=== PATIENT | female | born 1965 | race Caucasian/White ===

== ENCOUNTER 2017-03-01 07:18 | Inpatient (IN) | payer OTHER, BC ==
[2017-03-01] VITALS (14 sets, daily range): BP systolic 104–169; BP diastolic 59–114; PULSE 97–142; RESP 12–18; TEMP 96.6–98.2; O2SAT 97–100
[~2017-03-01] VITALS: Ht 167.6 cm; Wt 72.4 kg
[2017-03-01] MEDS ORDERED: IOHEXOL 350 MG/ML 10 ML VIAL (for RAD DIAG) IVCONTRAST ONE (07:19)
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
[2017-03-01 07:44] LABS: AUTOMATED NEUTROPHIL # 8.1 TH/MM3 (1.8-7.7); BASOPHIL # 0.1 TH/MM3 (0-0.2); BASOPHIL % 0.5 % (0.0-2.0); EOSINOPHIL # 0.3 TH/MM3 (0-0.4); EOSINOPHIL % 2.5 % (0.0-4.0); HEMATOCRIT 36.3 % (35.0-46.0); HEMOGLOBIN 12.9 GM/DL (11.6-15.3); LYMPH % 21.2 % (9.0-44.0); LYMPHOCYTE # 2.5 TH/MM3 (1.0-4.8); MEAN CELL VOLUME 96.3 FL (80.0-100.0); MEAN CORPUSCULAR HEMOGLOBIN 34.4 PG (27.0-34.0); MEAN CORPUSCULAR HGB CONC 35.7 % (32.0-36.0); MEAN PLATELET VOLUME 7.9 FL (7.0-11.0); MONO % 8.5 % (0.0-8.0); NEUT % 67.3 % (16.0-70.0); PLATELET COUNT 258 TH/MM3 (150-450); RED BLOOD COUNT 3.77 MIL/MM3 (4.00-5.30); RED CELL DISTRIBUTION WIDTH 13.8 % (11.6-17.2)
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
[2017-03-01 07:55] LABS: PROTHROMBIN TIME - PATIENT 10.5 SEC (9.8-11.6)
[2017-03-01] MEDS ORDERED: ETOMIDATE 40 MG/20 ML VIAL ONE (08:01)
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
[2017-03-01] MEDS ORDERED: ATROPINE SULFATE 1 MG/10 ML SYRINGE ONE (08:22)
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
[2017-03-01] MEDS ORDERED: PROPOFOL 1000 MG/100 ML INJ 100 ML IV PRN (08:30)
[2017-03-01 08:43] LABS: BILIRUBIN, URINE NEG (NEG); BLOOD, URINE NEG (NEG); GLUCOSE,URINE NEG (NEG); KETONE, URINE TRACE mg/dL (NEG); MUCUS URINE FEW /lpf (OCC); NITRITE,URINE NEG (NEG); PH, URINE 5.5 (5.0-8.5); SQUAMOUS EPITHELIAL CELL URINE <1 /hpf (0-5); URINE COLOR YELLOW (YELLW/STRAW); URINE LEUKOCYTE ESTERASE NEG (NEG)
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
[2017-03-01] MEDS ORDERED: SODIUM CHLORIDE 0.9% FLUSH 10 ML FLUSH IV FLUSH PRN (09:15)
[2017-03-01] MEDS ORDERED: SODIUM PHOSPHATE INJ 30 MMOL in SODIUM CHLOR 0.9% 250 ML INJ 240 ML IV PRN (09:15)
[2017-03-01] MEDS ORDERED: ENALAPRILAT 1.25 MG/ML VIAL IV PUSH PRN (09:15)
[2017-03-01] MEDS ORDERED: POTASSIUM PHOSPHATE MONOBASIC 500 MG TAB PO PRN (09:15)
[2017-03-01] MEDS ORDERED: MAGNESIUM SULFATE INJ 2 GM in SODIUM CHLORIDE 0.9% INJ 96 ML IV PRN (09:15)
[2017-03-01] MEDS ORDERED: MAGNESIUM OXIDE 400 MG TAB PO PRN (09:15)
[2017-03-01] MEDS ORDERED: MISCELLANEOUS NURSING INFORMATION XX SCH (09:15)
[2017-03-01] MEDS ORDERED: POTASSIUM PHOSPHATE MONOBASIC 500 MG TAB PO/TUBE PRN (09:15)
[2017-03-01] MEDS ORDERED: POTASSIUM CHLOR 40 MEQ PREMIX 100 ML IV PRN ×2 (09:15)
[2017-03-01] MEDS ORDERED: POTASSIUM CHLORIDE 25 MEQ EFFERVESCENT TAB PO PRN (09:15)
[2017-03-01] MEDS ORDERED: MAGNESIUM HYDROXIDE SUSP 30 ML CUP PO PRN (09:15)
[2017-03-01] MEDS ORDERED: POTASSIUM CHLOR 20 MEQ PREMIX 100 ML IV PRN ×2 (09:15)
[2017-03-01] MEDS ORDERED: MAGNESIUM SULFATE INJ 4 GM in SODIUM CHLORIDE 0.9% INJ 92 ML IV PRN (09:15)
[2017-03-01] MEDS ORDERED: CHLORHEXIDINE GLUCONATE 2 % 1 PACK (2 CLOTHS) TOP PRN (09:15)
[2017-03-01] MEDS ORDERED: ACETAMINOPHEN 325 MG TAB PO PRN (09:15)
[2017-03-01] MEDS ORDERED: POTASSIUM PHOSPHATE INJ 30 MMOL in SODIUM CHLOR 0.9% 250 ML INJ 250 ML IV PRN (09:15)
[2017-03-01] MEDS ORDERED: ONDANSETRON HCL 4 MG/2 ML VIAL IV PUSH PRN (09:15)
[2017-03-01] MEDS ORDERED: SODIUM CHLOR 0.9% 1000 ML INJ 1,000 ML IV ONE (09:30)
[2017-03-01] MEDS ORDERED: MIDAZOLAM 100 MG/100 ML INJ 100 ML IV PRN (09:30)
[2017-03-01] MEDS ORDERED: MIDAZOLAM 100 MG/100 ML INJ 100 ML ONE (09:38)
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
[2017-03-01] MEDS ORDERED: SODIUM CHLOR 0.9% 1000 ML INJ 1,000 ML IV SCH (10:00)
[2017-03-01] MEDS ORDERED: PANTOPRAZOLE SODIUM 40 MG VIAL IVP SCH (10:00)
[2017-03-01] MEDS ORDERED: CHLORHEXIDINE 0.12% (ORAL KIT) 15 ML CUP MT SCH ×2 (20:00)
[2017-03-01] MEDS: DOCUSATE SODIUM 100 MG CAP PO SCH (21:00)
[2017-03-01] MEDS ORDERED: HALOPERIDOL LACTATE 5 MG/ML AMP IM PRN (21:15)
[2017-03-02 04:00] VITALS: BP 94/51; PULSE 92; RESP 16; TEMP 98.7; O2SAT 97
[2017-03-02] MEDS ORDERED: CHLORHEXIDINE GLUCONATE 2 % 1 PACK (2 CLOTHS) TOP SCH (04:00)
[2017-03-02 06:17] LABS: BASOPHIL % 0.2 % (0.0-2.0); EOSINOPHIL # 0.3 TH/MM3 (0-0.4); EOSINOPHIL % 3.2 % (0.0-4.0); HEMATOCRIT 34.2 % (35.0-46.0); HEMOGLOBIN 11.7 GM/DL (11.6-15.3); LYMPH % 21.7 % (9.0-44.0); LYMPHOCYTE # 2.3 TH/MM3 (1.0-4.8); MEAN CELL VOLUME 96.4 FL (80.0-100.0); MEAN CORPUSCULAR HGB CONC 34.2 % (32.0-36.0); MONOCYTE # 0.8 TH/MM3 (0-0.9); NEUT % 66.9 % (16.0-70.0); PLATELET COUNT 207 TH/MM3 (150-450); RED BLOOD COUNT 3.55 MIL/MM3 (4.00-5.30); RED CELL DISTRIBUTION WIDTH 13.8 % (11.6-17.2); WHITE BLOOD COUNT 10.5 TH/MM3 (4.0-11.0)
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
[2017-03-02 06:42] LABS: ALBUMIN 3.4 GM/DL (3.4-5.0); ALT (GPT) 18 U/L (10-53); AST (GOT) 24 U/L (15-37); BICARBONATE 25.9 MEQ/L (21.0-32.0); BLOOD UREA NITROGEN 8 MG/DL (7-18); CALCIUM 8.8 MG/DL (8.5-10.1); CHLORIDE 109 MEQ/L (98-107); CREATININE 0.56 MG/DL (0.50-1.00); GLOMERULAR FILTRATION RATE 93 ML/MIN (>89); GLUCOSE,RANDOM 97 MG/DL (74-106); SODIUM (NA) 142 MEQ/L (136-145)
[2017-03-02 06:45] LABS: ALKALINE PHOSPHATASE 92 U/L (45-117); TOTAL BILIRUBIN ADULT 0.5 MG/DL (0.2-1.0); TOTAL PROTEIN 6.5 GM/DL (6.4-8.2)
[2017-03-02 07:40] VITALS: BP 102/60; PULSE 96; RESP 16; TEMP 98.2; O2SAT 98
[2017-03-02] MEDS: DOCUSATE SODIUM 100 MG CAP PO SCH (08:48)
[2017-03-02 11:56] VITALS: BP 104/55; PULSE 98; RESP 16; TEMP 97.4; O2SAT 98
[2017-03-02] MEDS ORDERED: QUEtiapine FUMARATE 25 MG TAB PO SCH (12:00)
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
== END 2017-03-02 15:12 | DRG 948 ==
LOC: NEPI 07:18 → NEDA 08:58 → EDBD 08:58 → N06A 12:50
PROVIDERS: ADMIT Surgery; ATTEND Surgery
PROC: 0BH17EZ Insertion of Endotracheal Airway into Trachea, Via Natural or Artificial Opening (ICD-10-PCS; principal; 2017-03-01)
PROC: 5A1935Z Respiratory Ventilation, Less than 24 Consecutive Hours (ICD-10-PCS; 2017-03-01)
DX: R41.82 Altered mental status, unspecified (principal); E03.9 Hypothyroidism, unspecified; F29 Unspecified psychosis not due to a substance or known physiological condition
CPT/HCPCS: 36600; 70450; 71045; 71260; 72125; 72170; 74177; 80053; 80307; 81001; 82435; 82565; 82805; 82947; 84100; 84132; 84295; 84520; 85025; 85610; 85730; 86850; 86900; 86901; 94002; J0461; J2250; Q9967

== ENCOUNTER 2017-03-02 14:46 | Inpatient (IN) | payer BC, OTHER ==
[~2017-03-02] VITALS: Ht 172.7 cm; Wt 69.2 kg
[2017-03-02 15:21] VITALS: BP 117/68; PULSE 84; RESP 18; TEMP 98.2; O2SAT 98
[2017-03-02 18:43] VITALS: BP 109/58; PULSE 81; RESP 18; TEMP 98.4; O2SAT 96
[2017-03-02] MEDS ORDERED: MAGNESIUM HYDROXIDE SUSP 30 ML CUP PO PRN (19:15)
[2017-03-02] MEDS ORDERED: LORazepam 2 MG/ML VIAL IM PRN (19:15)
[2017-03-02] MEDS ORDERED: ALUMINUM/MAGNESIUM/SIMETH 30 ML CUP PO PRN (19:15)
[2017-03-02] MEDS ORDERED: ACETAMINOPHEN 325 MG TAB PO PRN (19:15)
[2017-03-02] MEDS: LORazepam 1 MG TAB PO PRN (20:45)
[2017-03-02] MEDS: REMOVE OLD NICOTINE PATCH T-DERMAL SCH (20:47)
[2017-03-02] MEDS ORDERED: QUEtiapine FUMARATE 100 MG TAB PO SCH (21:00)
[2017-03-03 06:06] VITALS: BP 108/58; PULSE 101; RESP 17; TEMP 98.7; O2SAT 93
[2017-03-03 08:42] LABS: BICARBONATE 24.7 MEQ/L (21.0-32.0); BLOOD UREA NITROGEN 8 MG/DL (7-18); CALCIUM 8.4 MG/DL (8.5-10.1); CHLORIDE 109 MEQ/L (98-107); GLOMERULAR FILTRATION RATE 106 ML/MIN (>89); GLUCOSE,RANDOM 105 MG/DL (74-106); SODIUM (NA) 142 MEQ/L (136-145)
[2017-03-03 08:44] LABS: CHOLESTEROL 121 MG/DL (120-200); TRIGLYCERIDES 79 MG/DL (42-150)
[2017-03-03 08:47] LABS: CHOLESTEROL/ HDL RATIO 2.26 RATIO; HDL CHOLESTEROL 53.4 MG/DL (40.0-60.0); LDL CHOLESTEROL 52 MG/DL (0-99)
[2017-03-03] MEDS: NICOTINE 21 MG/24 HR PATCH T-DERMAL SCH (09:00)
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
--- NOTE | 2017-03-03 15:22 | PD.TTN ---
Patient Problems 1. Discharge planning 2. Medication compliance 3. Knowledge deficit 4. Lack of coping skills Progress Toward Goals Provider Present: Dr. Estela Crowder Provider Input: 03/03/2017 - Dr. Crowder reported that this is a new patient and he will assess her today. Psychiatric Counselors Present: JANUARY Morelos Psych Therapist Input: 03/03/2017 - Counselor reported that this patient is a new admission and will be assessed today. Group Spec/RT/OT/MEIER Present: El Guevara OT Group Spec/RT/OT/MEIER Input: 03/03/2017 - New admission Discharge Plan [facility] Documentation Scribe: JANUARY Morelos Date Resolved: Mar 03, 2017 Ariana Lou Mar 03, 2017 15:21
[2017-03-03 16:07] LABS: HEMOGLOBIN A1C 5.2 % (4.3-6.0)
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
[2017-03-03 18:44] VITALS: BP 121/84; PULSE 100; TEMP 98.4
[2017-03-03] MEDS: REMOVE OLD NICOTINE PATCH T-DERMAL SCH (21:00)
[2017-03-03] MEDS ORDERED: QUEtiapine FUMARATE 100 MG TAB PO SCH (21:00)
[2017-03-04 06:39] VITALS: BP 108/62; PULSE 82; RESP 16; TEMP 97.9; O2SAT 98
[2017-03-04] MEDS: NICOTINE 21 MG/24 HR PATCH T-DERMAL SCH (08:18)
[2017-03-04] MEDS ORDERED: GADODIAMIDE PF 287 MG/ML 5 ML VIAL (for RAD MRI) IVCONTRAST ONE (12:48)
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
--- NOTE | 2017-03-04 14:24 | HHI.PYPN ---
Subjective Remarks Patient seen for follow-up, chart reviewed. Discussion she staff reported patient had been seclusive to her room, has been out for meals but nothing participating in groups activities. Patient was found sitting in hospital bed, cooperative. Patient states that she is "much better" and reports having visited by her fianc last evening, reports not able to have a good meal complained that she is not receiving the food that she is requesting. When asked about why she has been seclusive to her room she states that she does not want to be a television saying is not "God like" and when explored as to what she had mentioned, she states that she feels that "TVs and computers or evil". 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 En reviewing how she has been doing over the past 2 months she states that she has been "committed to God" and having been meditating 5-6 hours throughout the day. Patient denies having any auditory hallucinations but does report communicant with God and that she would see herself in the mirror "the way I was in the past and those times". Patient continues report seeing "visions" in the windows or wallpaper. Patient continue with hypervigilant religiosity, bizarre thinking and disorganized at times. Review of Systems Except as stated in HPI: all other systems reviewed are Neg Mental Status Examination Appearance: Appropriate Consciousness: Alert Orientation: Person, Place, Date/Time Motor Activity: Normal gait Speech: Unremarkable Language: Adequate Fund of Knowledge: Adequate Attention and Concentration: Adequate Memory: Impaired (surrounding recent events prior to her hospitalization) Mood: Appropriate Affect: Appropriate Thought Process & Associations: Loose associations, Circumstantial, Disorganized (at times) Thought Content: Bizarre thinking, Delusional (uatsdin) Hallucination Type: Visual Delusion Type: Bizarre, Paranoid Suicidal Ideation: No Suicidal Plan: No Suicidal Intention: No Homicidal Ideation: No Homicidal Plan: No Homicidal Intention: No Insight: Fair Judgment: Impulsive Results Vitals/IOs Vital Signs Date Time Temp Pulse Resp B/P (MAP) Pulse Ox O2 Delivery O2 Flow Rate FiO2 03/04/17 06:39 97.9 82 16 108/62 (77) 98 Assessment & Plan Problem List: (1) Unspecified psychosis ICD Codes: F29 - Unspecified psychosis not due to a substance or known physiological condition Assessment & Plan Patient at this time continues to be noted to have uatsdin and bizarre delusions pertaining to God, although denying any auditory hallucinations feels that she is communicating with him through visions. Patient also has bizarre delusions of feeling that computers and televisions or evil which impede her from spending time in a day room. Although patient reporting sleeping much better patient continues to require titration of antipsychotic to treat current psychosis. 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 MRI was pending today. Will consult dietitian as patient had been complaining of poor intake due to food availability presented to her during meals. We'll increase quetiapine 200 mg by mouth at bedtime with upper titration as needed. Collateral pending from marjorie. Discharge planning in progress Justification for Cont. Inpt. At risk for further decompensation if at lower level of care Discharge Planning To return back to her residence once psychiatrically stable. Douglas Crowder MD Mar 04, 2017 14:24
[2017-03-04 18:19] VITALS: BP 119/72; PULSE 84; RESP 17; TEMP 98; O2SAT 97
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
[2017-03-04] MEDS: REMOVE OLD NICOTINE PATCH T-DERMAL SCH (21:00)
[2017-03-04] MEDS: QUEtiapine FUMARATE 100 MG TAB PO SCH (21:02)
[2017-03-05 02:00] VITALS: BP 106/63; PULSE 116; RESP 16; TEMP 98.5; O2SAT 96
[2017-03-05 06:37] VITALS: BP 103/57; PULSE 88; RESP 16; TEMP 98.2; O2SAT 98
[2017-03-05] MEDS: NICOTINE 21 MG/24 HR PATCH T-DERMAL SCH (08:27)
[2017-03-05] MEDS ORDERED: GADODIAMIDE PF 287 MG/ML 5 ML VIAL (for RAD MRI) IVCONTRAST ONE (09:49)
--- NOTE | 2017-03-05 11:15 | RADRPT ---
EXAM DATE/TIME: 03/05/2017 09:17 [facility] COMPARISON: No previous studies available for comparison. INDICATIONS : Multiple sclerosis. CONTRAST: 14 cc Omniscan (gadodiamide) IV MEDICAL HISTORY : Shantell's SURGICAL HISTORY : Breast implants. ENCOUNTER: Initial ACUITY: 2 day PAIN SCORE: 0/10 LOCATION: Paraspinal TECHNIQUE: Multiplanar, multisequence MRI examination of the cervical spine was performed. FINDINGS: VERTEBRAE: Normal vertebral body height. Homogeneous marrow signal. ALIGNMENT: No evidence of subluxation. CORD: Normal configuration and signal. POST FOSSA: The cerebellar tonsils are normal in position. POST-CONTRAST: No abnormal areas of enhancement are seen. C2-C3: The thecal sac has a normal configuration. There is no evidence of disc herniation or spinal canal stenosis. The neural foramina are patent bilaterally. C3-C4: Very minimal diffuse disc osteophyte complex is noted resulting in no spinal stenosis or neural ariadna inal narrowing. C4-C5: Very minimal diffuse disc osteophyte complex is noted resulting in no spinal stenosis or neural ariadna inal narrowing. C5-C6: Minimal diffuse disc osteophyte complex is noted resulting in no spinal stenosis or neural foraminal narrowing. C6-C7: The thecal sac has a normal configuration. There is no evidence of disc herniation or spinal canal s tenosis. The neural foramina are patent bilaterally. C7-T1: The thecal sac has a normal configuration. There is no evidence of disc herniation or spinal canal s tenosis. The neural foramina are patent bilaterally. T1-T2: There is a diffuse left lateral disc bulge at this level which results in moderate left neural forami nal narrowing. No spinal stenosis is noted. CONCLUSION: 1. No focal signal abnormality or abnormal enhancement of the cervical spinal cord to suggest demyeli nation. 2. Diffuse left lateral disc bulge at T1-2 resulting in moderate left neural foraminal narrowing. 3. Minimal diffuse disc osteophyte complex at C5-6 and very minimal diffuse disc osteophyte complexes at C3-4 and C4-5 resulting in no spinal stenosis or neural foraminal narrowing. Doug Quick MD on March 05, 2017 at 11:05 Board Certified Radiologist. This report was verified electronically.
[2017-03-05] MEDS ORDERED: QUET1TAB9 PO (12:39)
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
[2017-03-05] MEDS: QUEtiapine FUMARATE 25 MG TAB PO SCH (14:00)
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
--- NOTE | 2017-03-05 16:15 | HHI.PYPN ---
Subjective Remarks Patient seen for follow-up, chart reviewed. Discussion she staff reported the patient did go to some groups but also has been seclusive to her room as well. Patient is found lying in hospital bed, cooperative interview today. Patient noted be somewhat tearful stated that she was afraid she would be kept in the hospital for weeks but was reminded that she is currently on a voluntary admission but was recommended for further psychiatric stabilization which she had initially was wanting to be discharged later decided to stay for further stabilization. Patient states that she is worried that she does not feel that she is herself stated that 2 days ago she would visit with her significant other and that his name tag she would see angels wings and then see the devil. Patient also mentions that she no longer has visual hallucinations on the wallpaper when the windows stated that she feels happy and sad that she is not hallucinating but said that she has lost her current medication with God. Patient states that she is feeling depressed but not having any suicidal ideations. Patient reports that she's been having difficulty with memory recently for the past 6 months and was concerned that she would have another underlying medical condition contributed to this. Review of imaging was discussed as well as recommendations by neurology x ray consultant at that further workup to rule out other medical etiologies could be done outpatient. Patient later had endorsed to nursing staff that she was hearing voices of people laughing. Patient appeared to be uncertain whether she was feeling ready to go home. Review of Systems Except as stated in HPI: all other systems reviewed are Neg Mental Status Examination Appearance: Appropriate Consciousness: Alert Orientation: Person, Place, Date/Time Motor Activity: Normal gait Speech: Unremarkable Language: Adequate Fund of Knowledge: Adequate Attention and Concentration: Adequate Memory: Impaired (surrounding recent events prior to her hospitalization) Mood: Sad Affect: Sad, Other (noted to be tearful at one point) Thought Process & Associations: Loose associations Thought Content: Bizarre thinking, Delusional (tenriism) Hallucination Type: Visual (denies today) Delusion Type: Bizarre Suicidal Ideation: No Suicidal Plan: No Suicidal Intention: No Homicidal Ideation: No Homicidal Plan: No Homicidal Intention: No Insight: Fair Judgment: Impulsive Results Vitals/IOs Vital Signs Date Time Temp Pulse Resp B/P (MAP) Pulse Ox O2 Delivery O2 Flow Rate FiO2 03/05/17 06:37 98.2 88 16 103/57 (72) 98 Intake and Output 03/05/17 03/05/17 03/06/17 08:00 16:00 00:00 Intake Total 360 ml 360 ml Balance 360 ml 360 ml Assessment & Plan Problem List: (1) Brief psychotic disorder ICD Codes: F23 - Brief psychotic disorder Assessment & Plan Patient this time noted to be more organized, having less intense tenriism preoccupation but continues to be noted to have somewhat distressed affect, tearful at times reported feeling depressed due to recent events. Although patient denying any visual hallucinations it appears patient continues to have some tenriism preoccupation and delusion but to a lesser extent. We'll continue to increase quetiapine to 50/200mg for psychosis, continue with the medications. Discussion with hospitalist referred that recommendation by neurology for continue our workup for possible medical etiologies due to abnormal MRI to be done outpatient with follow-up with neurology after discharge. Patient to continue be monitored for mood and behavior. Discharge planning in progress Justification for Cont. Inpt. At risk for decompensation at lower level of care Discharge Planning Patient to discharge back to her residence with support upon discharge Douglas Crowder MD Mar 05, 2017 16:15
[2017-03-05 18:22] VITALS: BP 116/79; PULSE 80; RESP 16; TEMP 97.9; O2SAT 98
[2017-03-05] MEDS: REMOVE OLD NICOTINE PATCH T-DERMAL SCH (21:00)
[2017-03-05] MEDS: traZODone HCL 50 MG TAB PO PRN (21:20)
[2017-03-05] MEDS: QUEtiapine FUMARATE 100 MG TAB PO SCH (21:20)
--- NOTE | 2017-03-05 23:54 | EKG ---
Date Performed: 03/03/2017 Time Performed: 13:55:10 PTAGE: 51 years EKG: Sinus rhythm NORMAL ECG NO PREVIOUS TRACING DOCTOR: Jie Perry Interpretating Date/Time 03/05/2017 23:52:41
[2017-03-06 05:46] VITALS: BP 102/57; PULSE 90; RESP 16; TEMP 97.9; O2SAT 96
[2017-03-06] MEDS: NICOTINE 21 MG/24 HR PATCH T-DERMAL SCH (09:00)
--- NOTE | 2017-03-06 15:22 | HHI.PYPN ---
Subjective Remarks Patient was seen and case discussed with nursing. Patient is pleasant and cooperative with exam. That hallucinations are abating. She saw a window today and a picture was there that shouldn't be. Outside of that there are no auditory hallucinations or delusions. Patient is logical and coherent. Tolerating medications well Mental Status Examination Appearance: Appropriate Consciousness: Alert Orientation: Person, Place, Date/Time Motor Activity: Normal gait Speech: Unremarkable Language: Adequate Fund of Knowledge: Adequate Attention and Concentration: Adequate Memory: Impaired (surrounding recent events prior to her hospitalization) Mood: Sad Affect: Sad, Other (noted to be tearful at one point) Thought Process & Associations: Intact Thought Content: Appropriate Hallucination Type: Visual (denies today) Delusion Type: None Suicidal Ideation: No Suicidal Plan: No Suicidal Intention: No Homicidal Ideation: No Homicidal Plan: No Homicidal Intention: No Insight: Fair Judgment: Impulsive Results Vitals/IOs Vital Signs Date Time Temp Pulse Resp B/P (MAP) Pulse Ox O2 Delivery O2 Flow Rate FiO2 03/06/17 05:46 97.9 90 16 102/57 (72) 96 Assessment & Plan Problem List: (1) Brief psychotic disorder ICD Codes: F23 - Brief psychotic disorder Assessment & Plan Continue current treatment plan Justification for Cont. Inpt. Patient would decompensate in a less restrictive setting Zane Mcduffie DO Mar 06, 2017 15:22
[2017-03-06] MEDS: QUEtiapine FUMARATE 25 MG TAB PO SCH (15:31)
[2017-03-06 18:17] VITALS: BP 103/56; PULSE 80; RESP 16; TEMP 97.5; O2SAT 100
[2017-03-06] MEDS: REMOVE OLD NICOTINE PATCH T-DERMAL SCH (21:00)
[2017-03-06] MEDS: traZODone HCL 50 MG TAB PO PRN (21:49)
[2017-03-06] MEDS: QUEtiapine FUMARATE 100 MG TAB PO SCH (21:49)
[2017-03-07 06:17] VITALS: BP 118/63; PULSE 94; RESP 16; TEMP 98.2; O2SAT 96
[2017-03-07] MEDS: NICOTINE 21 MG/24 HR PATCH T-DERMAL SCH (08:59)
--- NOTE | 2017-03-07 13:45 | HHI.PYPN ---
Subjective Remarks Patient was seen and case discussed with nursing. Patient is pleasant and cooperative with exam. She wanted to the psychotherapy group. Says her hallucinations and delusions are resolved but she does not feel like herself. Alert and oriented 4. Denies depressed mood. Tolerating medications well Mental Status Examination Appearance: Appropriate Consciousness: Alert Orientation: Person, Place, Date/Time Motor Activity: Normal gait Speech: Unremarkable Language: Adequate Fund of Knowledge: Adequate Attention and Concentration: Adequate Memory: Impaired (surrounding recent events prior to her hospitalization) Mood: Sad Affect: Sad, Other (noted to be tearful at one point) Thought Process & Associations: Intact Thought Content: Appropriate Hallucination Type: Visual (denies today) Delusion Type: None Suicidal Ideation: No Suicidal Plan: No Suicidal Intention: No Homicidal Ideation: No Homicidal Plan: No Homicidal Intention: No Insight: Fair Judgment: Impulsive Results Vitals/IOs Vital Signs Date Time Temp Pulse Resp B/P (MAP) Pulse Ox O2 Delivery O2 Flow Rate FiO2 03/07/17 06:17 98.2 94 16 118/63 (81) 96 Assessment & Plan Problem List: (1) Brief psychotic disorder ICD Codes: F23 - Brief psychotic disorder Assessment & Plan Continue current treatment plan Justification for Cont. Inpt. Patient will decompensate in a less restrictive setting Zane Mcduffie DO Mar 07, 2017 13:45
[2017-03-07] MEDS: QUEtiapine FUMARATE 25 MG TAB PO SCH (14:03)
[2017-03-07 16:07] VITALS: BP 119/64; PULSE 93; RESP 18; TEMP 98.6; O2SAT 98
[2017-03-07] MEDS: REMOVE OLD NICOTINE PATCH T-DERMAL SCH (21:00)
[2017-03-07] MEDS: traZODone HCL 50 MG TAB PO PRN (21:45)
[2017-03-07] MEDS: QUEtiapine FUMARATE 100 MG TAB PO SCH (21:45)
[2017-03-07] MEDS: LORazepam 1 MG TAB PO PRN (22:12)
[2017-03-08 06:43] VITALS: BP 104/63; PULSE 80; RESP 16; TEMP 98; O2SAT 98
[2017-03-08] MEDS: NICOTINE 21 MG/24 HR PATCH T-DERMAL SCH (08:31)
--- NOTE | 2017-03-08 10:27 | PD.TTN ---
Patient Problems 1. Discharge planning 2. Medication compliance 3. Knowledge deficit 4. Lack of coping skills Progress Toward Goals Provider Present: Dr. Estela Crowder Provider Input: 03/08/2017 - Patient will be discharged home today. 03/03/2017 - Dr. Crowder reported that this is a new patient and he will assess her today. Psychiatric Counselors Present: JANUARY Morelos Psych Therapist Input: 03/08/2017 - Counselor will arrange for patient's discharge and follow-up appointments. 03/03/2017 - Counselor reported that this patient is a new admission and will be assessed today. Group Spec/RT/OT/MEIER Present: [facility] OT Group Spec/RT/OT/MEIER Input: 03/08/2017 - Patient attends select groups 03/03/2017 - New admission Discharge Plan SMA, Patient's choice of Provider Patient will be discharged home today and counselor will arrange for her psychiatric follow-up appointment. Documentation Scribe: JANUARY Morelos Date Resolved: Mar 08, 2017 Ariana Lou Mar 08, 2017 10:27
[2017-03-08] MEDS ORDERED: SERO25TA PO (13:40)
[2017-03-08] MEDS ORDERED: QUET1TAB9 PO (13:40)
[2017-03-08] MEDS ORDERED: TRAZ50TA12 PO (13:40)
[2017-03-08] MEDS: QUEtiapine FUMARATE 25 MG TAB PO SCH (14:00)
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
== END 2017-03-08 15:55 | disposition home or self-care (01) | DRG 885 ==
LOC: H260 15:15
PROVIDERS: ADMIT Student in an Organized Health Care Education/Training Program; ATTEND Student in an Organized Health Care Education/Training Program
DX: F23 Brief psychotic disorder (principal); F32.9 Major depressive disorder, single episode, unspecified; F90.9 Attention-deficit hyperactivity disorder, unspecified type; E06.3 Autoimmune thyroiditis; G43.909 Migraine, unspecified, not intractable, without status migrainosus; Z72.0 Tobacco use; Z81.8 Family history of other mental and behavioral disorders; Z91.5 Personal history of self-harm
CPT/HCPCS: 70553; 72156; 80048; 80061; 83036; 93005; A9579